=== PATIENT | male | born 1995 | race Caucasian/White ===

== ENCOUNTER 2017-01-12 20:40 | Emergency (ER) | payer MEDICAID ==
[~2017-01-12] VITALS: Ht 165.1 cm; Wt 58.5 kg
--- NOTE | 2017-01-12 21:02 | Emergency Room Report ---
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 Y Clinical Suspician of Infection? N Mental Status: 1 - Regular (Normal Baseline) Sepsis Risk:Low Sepsis Risk Have you (or family members/close friends) recently traveled outside the [place]? N If Yes, where/when: Have you had exposure to infectious disease within the past month? N TB? Other? Specify: Source patient, RN notes reviewed, family, old records Exam Limitations no limitations ALLERGIES Coded Allergies: No Known Allergies (01/12/17) Home Medications Reported Medications No Known Home Medications History Medical History General CAD? No Angina: No PA: No Hypertension? No Hyperlipidemia? No CHF? No DVT? No PE? No COPD? No Asthma? No Anemia? No GERD? No Gastric ulcers? No GI Bleed? No Hernia? No Thyroid Problems? No Hypothyroidism? No CVA? No Seizures? No Diabetes? No Renal Insuffiency? No End Stage Renal Disease? No UTI? No Stones? No BPH? No GB Disease: No Nephritic Syndrome? No Asplenia? No Hepatitis? No Sickle Cell Disease? No Arthritis? No Migraines? No Cataracts? No Glaucoma? No MRSA? No HIV? No TB? No Anxiety? No Depression? No Cancer? No More? No Immunization Hx DT/Tetanus 5-10 Years Ago Surgical Hx Previous Surgery?N Social History Smoking Hx Smoker: Current Every Day Smoker Tobacco: Yes Type Cigarettes Packs/day < 1 Pack Alcohol Alcohol: No Drugs none Review of Systems All Other Systems Reviewed and Negative Constitutional see HPI, denies fever, weakness Eyes denies drainage ENT denies: ear pain, epistaxis, throat pain. Respiratory denies cough, denies shortness of breath, denies wheezing Cardiovascular denies chest pain, denies palpitations, denies syncope Gastrointestinal see HPI, denies abdominal pain, diarrhea, nausea, vomiting Genitourinary denies: dysuria, frequency, hesitancy, hematuria. Musculoskeletal denies back pain Skin denies rash Psychiatric/Neurological denies headache, denies seizure Physical Exam Vital Signs Vital Signs Date Time Temp Pulse Resp B/P Pulse O2 O2 Flow FiO2 Ox Delivery Rate 01/13 2044 98.5 75 18 147/ 96 - WBC >12,000 or <4,000 or 10% bands? 2 or more SIRS Criteria Met? B/P:147/66 MAP:93 Creatinine >2.0? UA output<0.5ml/kg/hr for 2 hrs? Platelet count >100,000? Lactate >2.0mmol/1? INR >1.2 or PTT > than 60 sec? Evidence of Organ Dysfunction? Provider documented clinical suspician of infection? N Sepsis Criteria Count: 1 Sepsis Risk: Low Sepsis Risk General Appearance no apparent distress Eye Exam - bilateral eye PERRL, bilateral eye EOMI Ear, Nose, Throat normal ENT inspection Neck supple Respiratory Status No: respiratory distress. Cardiovascular regular rate/rhythm Peripheral Pulses Pulses normal Yes Gastrointestinal soft, no organomegaly, no pulsatile mass, no guarding, no rebound, no rt lower abd pain Back no CVA tenderness Extremities normal inspection Strength 4 Upper Ext (L), 4 Upper Ext (R), 4 Lower Ext (L), 4 Lower Ext (R) Neurologic alert, mercerizing range feeder II-XII nml as tested, no motor/sensory deficits Reflexes Reflexes normal No Mental status normal mood/affect Skin intact Medical Decision Making LABS/Meds/Orders Pt receiving controlled substance in ED? No Results/Orders Laboratory Tests 01/12/172104: Sodium 139, Potassium 4.3, Chloride 101, Carbon Dioxide 29, BUN 16, Creatinine 1.3, Estimated Creat Clear 75, Estimated GFR (MDRD) 70, Glucose 102, Calcium 9.8 , Total Bilirubin 0.6, AST 18, ALT 34, Alkaline Phosphatase 156 H, Total Protein 9.0 H, Albumin 4.9, Globulin 4.1 H, Albumin/Globulin Ratio 1.2, WBC 12.4, RBC 5.79, Hgb 17.2, Hct 51.1, MCV 88.3, RDW 13.0, Plt Count 239, MPV 7.6, Gran % 91.2 H, Gran # 11.3 H, Total Counted Pending, Lymphocytes % 4.0 L, Monocytes % 3.2, Eosinophils % 1.3, Basophils % 0.2, Neutrophils Pending, Lymphocytes (Manual) Pending, Lymphocytes # 0.5 L, Monocytes # 0.4, Eosinophils # 0.2, Basophils # 0.0, Platelet Estimate Pending, PUBS MCHC 33.7, MCH 29.8 Current Medication Orders Sig/Vaishnavi Start time Last Medication Dose Route Stop Time Status Admin Sodium Chloride 10 ML PRN PRN 01/12 2115 AC IV 01/13 2102 Sodium Chloride 1,000 ML .Q1H1M 01/12 2115 AC 01/12 IV 01/12 Sodium Chloride 10 ML PRN PRN 01/12 2115 AC IV 01/13 2102 Sodium Chloride 1,000 ML .STK-MED ONE 01/12 2055 DC IV Orders Procedure Date/time Status DIFFERENTIAL-WBC 01/12 2105 Active IV SALINE LOCK 01/12 2102 Active URINALYSIS/COMPLETE 01/12 2102 Active DIARRHEA PANEL, PCR 01/12 2102 Active COMPLETE METABOLIC PANEL 01/12 2102 Complete CBC WITH AUTO DIFF 01/12 2102 Active Departure Departure Time of Disposition 2129 Disposition DC Home or Self Care(routine) Clinical Impression Primary Impression: Gastroenteritis Condition STABLE Patient Instructions DI for Vomiting -- Adult Additional Instructions fluids and see pcp for follow up Discharge Counseling Counseled pt/family regarding diagnosis, test results, medications/RX, follow up needs Prescriptions Current Visit Scripts No Known Home Medications ED Critical Care Critical Care No at 2130
[2017-01-12 21:09] LABS: HEMOGLOBIN 17.2 g/dL (14.1-18.0); LYMPH # 0.5 K/mm3 (0.7-4.5)
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
--- OUTSIDE RECORDS SUMMARY | 2017-01-12 21:22 | External Medical Summary Rpt | CCD ---
Author Author , JACOB JAMES Address Unknown Phone [email or web address] Purpose Continuity of Care Document - 10-17-2013 [...] on SYPHILIS IGG TEST (EIA) (11-27-2013 11:00) Operating Room Scheduler: Caitlyn Miranda MD FCAP Lab: [facility] Division of Laboratory Services Lab Address: [address] [place] [address], [address] [place] [address] 11-27-2013 11:00 am Specimen Collection Start Date/Time: Hydraulic Barker Operator: Specimen Rcv'd 11-29-2013 9:05 am Date/Time: Ordering Physician: REZA PAUL [facility] 11-29-2013 2:05 pm Results Rpt/Status Change Date/Time: [...] 11:00 CHLAMYDIA AND GONORRHEA TESTING (11-27-2013 11:00) Operating Room Scheduler: Caitlyn Miranda MD FCAP Lab: [facility] Division of Laboratory Services Lab Address: [address] [place] [address], [address] [place] [address] 11-27-2013 11:00 am Specimen Collection Start Date/Time: Hydraulic Barker Operator: Specimen Bernabe 11-29-2013 9:14 am Date/Time: Ordering Physician: REZA PAUL [facility] 11-30-2013 8:31 am Results Rpt/Status Change Date/Time: [...] DATE CHLAMYDIA AND GONORRHEA TESTING (10-17-2013 10:00) Operating Room Scheduler: Caitlyn Miranda MD AP Lab: [facility] Division of Laboratory Services Lab Address: [address] [place] [address], [address] [place] [address] 10-17-2013 10:00 am Specimen Collection Start Date/Time: Hydraulic Barker Operator: Specimen Bernabe 10-20-2013 9:33 am Date/Time: Ordering Physician: REZA PAUL [facility] 10-23-2013 9:02 am Results Rpt/Status Change Date/Time: [...]
--- OUTSIDE RECORDS SUMMARY | 2017-01-12 21:23 | External Medical Summary Rpt | CCD ---
Author Author [employer] Organization [employer] Address Unknown Phone Unavailable Purpose Continuity of Care Document - through 2016
--- OUTSIDE RECORDS SUMMARY | 2017-01-12 21:23 | External Medical Summary Rpt | CCD ---
Author Author , JACOB JAMES Address Unknown Phone [email or web address] Immunization Name Date Rout CVX Reac Dose Comm Prov Is Faci e tion ent ider Refu lity Give sed n MCV4 11- 147 999 Hist H203 No H203 UF 0-20 oric 11 al Info rmat ion - Sour ce Unsp ecif ied Hib, 08 17 999 Hist H125 No H125 UF 0-19 oric 99 al Info rmat ion - Sour ce Unsp ecif ied
--- OUTSIDE RECORDS SUMMARY | 2017-01-12 21:23 | External Medical Summary Rpt | CCD ---
Author Author , JACOB JAMES Address Unknown Phone [email or web address] Immunization Name Date Rout CVX Reac Dose [...]
[2017-01-12 21:43] LABS: NEUTROPHILS 94 % (42-76)
[2017-01-12 21:45] LABS: AEROMONAS NOT DETECTED (NOT DETECTE); ASTROVIRUS NOT DETECTED (NOT DETECTE); CYCLOSPORA CAYETANENSIS NOT DETECTED (NOT DETECTE); E COLI O157 NOT DETECTED (NOT DETECTE); ENTEROAGGREGATIVE E COLI NOT DETECTED (NOT DETECTE); ENTEROPATHOGENIC E COLI NOT DETECTED (NOT DETECTE); ENTEROTOXIGENIC E COLI NOT DETECTED (NOT DETECTE); SAPOVIRUS NOT DETECTED (NOT DETECTE); SHIGA-LIKE TOXIN PROD. E COLI NOT DETECTED (NOT DETECTE); SHIGELLA/ENTEROINVASIVE E COLI NOT DETECTED (NOT DETECTE); VIBRIO CHOLERAE NOT DETECTED (NOT DETECTE)
[2017-01-12 22:00] VITALS: BP 134/72
[2017-01-12 23:38] LABS: NOROVIRUS DETECTED (NOT DETECTE)
== END 2017-01-12 22:01 | disposition home or self-care (01) ==
LOC: ER 20:40
PROVIDERS: Emergency Medicine
DX: A08.4 Viral intestinal infection, unspecified (principal); F17.210 Nicotine dependence, cigarettes, uncomplicated